=== PATIENT | male | born 1970 | race Caucasian/White ===

== ENCOUNTER 2019-05-17 19:32 | Inpatient (IN) | payer MEDICAID ==
[~2019-05-17] VITALS: Ht 165.1 cm; Wt 84.8 kg
[2019-05-17 19:35] VITALS: BP_SYST 138; BP_SYST 149; BP_DIAS 90
--- NOTE | 2019-05-17 20:01 | NUR ---
PT TAKEN TO XRAY
--- NOTE | 2019-05-17 20:05 | NUR ---
49 Y/O MALE PRESENTS WITH COUGH WITH SYNCOPAL EPISODE AT 1700. COUGH HAS BEEN PRESENT FOR 2 WEEKS, DAUGHTER REPORTS THAT WHEN PT BEGINS COUGHING HE PASSES OUT. SYNCOPAL EPISODE TODAY WAS UNWITNESSED. PT BELIEVES HE HAD LOC. PERRLA. AAOX4. RESP EVEN AND UNLABORED. EXP WHEEZES HEARD IN BILAT BASES. DENIES ANY RECENT ILLNESS/TRAVEL OUTSIDE COUNTRY. CAP REFILL <3. PT IS SMOKER, ABOUT 1 PACK EVERY TWO DAYS NO PMH NKA
--- NOTE | 2019-05-17 20:51 | NUR ---
PT AMBULATED TO ER BED 10
--- NOTE | 2019-05-17 21:23 | NUR ---
BLOOD DRAWN AND SENT TO LAB AT THIS TIME
[2019-05-17 21:36] LABS: BASOPHILS # (AUTO) 0.2 K/uL (0.00-0.22); BASOPHILS % (AUTO) 1.1 % (0.0-2.0); EOSINOPHILS # (AUTO) 0.1 K/uL (0-0.4); HEMATOCRIT 50.7 % (36-52); HEMOGLOBIN 16.9 g/dL (12.0-18.0); LYMPHOCYTES # (AUTO) 3.5 K/uL (2.0-11.5); LYMPHOCYTES % (AUTO) 24.9 % (20.5-51.1); MEAN CORPUSCULAR HEMOGLOBIN 30 pg (27-31); MEAN CORPUSCULAR HGB CONC 33 g/dL (33-37); MEAN CORPUSCULAR VOLUME 90.6 fL (80-94); MONOCYTES # (AUTO) 0.9 K/uL (0.8-1.0); MONOCYTES % (AUTO) 6.3 % (1.7-9.3); NEUTROPHILS # (AUTO) 9.5 K/uL (1.8-7.7); NEUTROPHILS % (AUTO) 66.7 % (42.2-75.2); PLATELET COUNT (AUTO) 217 K/uL (140-450); RED BLOOD CELL COUNT(AUTO) 5.59 MIL/uL (4.20-6.10); RED CELL DISTRIBUTION WIDTH 13.3 % (11.6-13.7); WHITE BLOOD COUNT (AUTO) 14.2 K/uL (4.8-10.8)
[2019-05-17 21:56] LABS: ALBUMIN 4.1 g/dL (3.4-5.0); ANION GAP 15.8 (8-16); CARBON DIOXIDE 24.9 mmol/L (21-32); CREATININE 0.8 mg/dL (0.6-1.3); POTASSIUM 4.7 mmol/L (3.5-5.1); TOTAL BILIRUBIN 0.4 mg/dL (0.0-1.0)
[2019-05-17 22:04] LABS: CREATINE KINASE MB 1.6 ng/mL (0-3.6)
--- NOTE | 2019-05-17 23:39 | NUR ---
PT TAKEN TO CT
--- NOTE | 2019-05-17 23:44 | NUR ---
PT RETURNED FROM CT
--- NOTE | 2019-05-17 23:44 | NUR ---
PT RETURN FROM CT
[2019-05-18] VITALS (9 sets, daily range): BP systolic 124–164; BP diastolic 63–97
[2019-05-18] MEDS ORDERED: ACETAMIN/CODEINE 120/12MG-5ML 5 ML UDC PO ONE
[2019-05-18] MEDS ORDERED: AMOXIL/CLAVULANATE 875/125 MG 1 TAB PO ONE (01:15)
[2019-05-18] MEDS ORDERED: ASPIRIN 325 MG TAB PO ONE (01:15)
--- NOTE | 2019-05-18 02:03 | NUR ---
PT ARRIVED AT UNIT VIA GURNEY, AMBULATED TO BED, TOLERATED WELL, RECEIVED REPORT FROM ER NURSE TAYLOR RN, PT STABLE, IV TO R AC 18G PATENT INTACT, PT ON ROOM AIR, NO SOB NOTED, PT STATED HAVING NO PAIN OR DISCOMFORT AT THIS MOMENT, ORIENT PT TO ROOM ,CALL LIGHT, MRSA SWAB TAKEN, INITIAL ASSESSMENT DONE, ALL SAFETY PRECAUTION MET, CALL LIGHT WITHIN REACH, WILL CONTINUE TO MONITOR.
--- NOTE | 2019-05-18 02:05 | NUR ---
PT ADMITTED TO [facility] RM 125A. TRANSFERRED VIA [facility] WITH [facility]; STABLE CONDITION. REPORT GIVEN TO JAY JAY YANEZ; TRANSFER OF CARE AT THIS TIME.
[2019-05-18] MEDS ORDERED: LEVOFLOXACIN 750 MG/D5W PREMIX 150 ML IV SCH (02:10)
[2019-05-18] MEDS ORDERED: MORPHINE SULFATE 2 MG/ML SYR IVP PRN (02:15)
[2019-05-18] MEDS ORDERED: ONDANSETRON 4 MG/2 ML VIAL IM/IVP PRN (02:15)
[2019-05-18] MEDS ORDERED: ACETAMINOPHEN 325 MG TAB PO PRN (02:15)
[2019-05-18] MEDS ORDERED: HYDROcodone/APAP 5/325 MG 1 TAB TAB PO PRN (02:15)
[2019-05-18] MEDS ORDERED: DOCUSATE SODIUM 100 MG GELCAP PO PRN (02:15)
--- NOTE | 2019-05-18 02:39 | NUR ---
ORTHOSTATIC BLOOD PRESSURE TAKEN, REPORTED TO DR. MARIE. DR STATED UNDERSTANDING.
[2019-05-18] MEDS: NACL 0.9% 1,000 ML IV SCH ×2 (02:57→10:01)
--- NOTE | 2019-05-18 02:57 | NUR ---
DUE MEDICATION ADMINISTERED, PT TOLERATED WELL, NO DISTRESS NOTED, CALL LIGHT WITHIN REACH, WILL CONTINUE TO MONITOR.
[2019-05-18] MEDS ORDERED: INFLUENZA VACCINE QUAD 0.5 ML SYR IMVAC PRN (03:10)
[2019-05-18 03:33] LABS: AMYLASE 50 U/L (25-115); CHOL/HDL RATIO 6.1 (1-4.5); FREE T4 (FREE THYROXINE) 0.93 ng/dL (0.76-1.46); HDL CHOLESTEROL 39 mg/dL (40-60); LACTATE DEHYDROGENASE 433 U/L (85-227); LDL (CALC) 70 mg/dL (60-100); LIPASE 201 U/L (73-393); PHOSPHORUS 3.5 mg/dL (2.5-4.9); THYROID STIMULATING HORMONE 1.28 uIU/mL (0.34-3.74); TRIGLYCERIDES 646 mg/dL (30-150)
[2019-05-18 03:41] LABS: MAGNESIUM 2.2 mg/dL (1.8-2.4)
[2019-05-18 03:56] LABS: PROTHROMBIN TIME 9.4 secs (10.8-13.4)
[2019-05-18 04:25] LABS: APPEARANCE,URINE CLEAR (CLEAR); BILIRUBIN,URINE NEGATIVE (NEGATIVE); BLOOD, URINE NEGATIVE (NEGATIVE); COLOR,URINE YELLOW (YELLOW); LEUKOCYTE ESTERASE ,URINE NEGATIVE (NEGATIVE); NITRITE, URINE NEGATIVE (NEGATIVE); PH,URINE 5.5 (5.0-9.0); UGLUCOSE NEGATIVE (NEGATIVE)
--- NOTE | 2019-05-18 05:20 | NUR ---
PT RESTING NO DISTRESS NOTED, CALL LIGHT WITHIN REACH, WILL CONTINUE TO MONITOR.
[2019-05-18 06:19] LABS: BARBITURATE, URINE NEG. ng/ml (NEG <=200); BENZODIAZEPINE, URINE NEG. ng/mL (NEG <=200); CANNABINOID, URINE NEG. ng/mL (NEG <=50); COCAINE, URINE NEG. ng/mL (NEG <=300); OPIATE, URINE POS. ng/mL (NEG <=2000); PHENCYCLIDINE SCREEN,URINE NEG. ng/mL (NEG <=25)
[2019-05-18 07:16] LABS: BASOPHILS # (AUTO) 0.1 K/uL (0.00-0.22); BASOPHILS % (AUTO) 0.5 % (0.0-2.0); EOSINOPHILS # (AUTO) 0.1 K/uL (0-0.4); HEMATOCRIT 46.1 % (36-52); HEMOGLOBIN 15.5 g/dL (12.0-18.0); LYMPHOCYTES # (AUTO) 2.9 K/uL (2.0-11.5); LYMPHOCYTES % (AUTO) 25.8 % (20.5-51.1); MEAN CORPUSCULAR HEMOGLOBIN 30 pg (27-31); MEAN CORPUSCULAR HGB CONC 34 g/dL (33-37); MEAN CORPUSCULAR VOLUME 89.6 fL (80-94); MONOCYTES % (AUTO) 8.3 % (1.7-9.3); NEUTROPHILS # (AUTO) 7.3 K/uL (1.8-7.7); NEUTROPHILS % (AUTO) 64.4 % (42.2-75.2); PLATELET COUNT (AUTO) 193 K/uL (140-450); RED BLOOD CELL COUNT(AUTO) 5.15 MIL/uL (4.20-6.10); WHITE BLOOD COUNT (AUTO) 11.4 K/uL (4.8-10.8)
[2019-05-18 07:21] LABS: ANION GAP 12.9 (8-16); CREATININE 0.6 mg/dL (0.6-1.3); POTASSIUM 3.9 mmol/L (3.5-5.1)
--- NOTE | 2019-05-18 07:21 | NUR ---
ENDORSED TO DAY SHIFT NURSE CONCHIS YANEZ, PT STABLE, NO DISTRESS NOTED, CALL LIGHT WITHIN REACH.
--- NOTE | 2019-05-18 07:26 | NUR ---
RECEIVED BEDSIDE REPORT FROM NIGHTSHIFT NURSE. PT RESTING IN BED. ABLE TO MAKE NEEDS KNOWN. RESPIRATIONS EVEN AND UNLABORED WITH NO SOB OR RESPIRATORY DISTRESS. SKIN WARM AND DRY TO TOUCH. IV SITE IN RIGHT AC 18G IS CLEAN, DRY, AND INTACT. SAFETY MEASURES IN PLACE. WILL CONTINUE TO MONITOR.
--- NOTE | 2019-05-18 07:59 | NUR ---
PATIENT HAS BEEN SCREENED AND CATEGORIZED MODERATE NUTRITION RISK. PATIENT WILL BE SEEN WITHIN 3-5 DAYS OF ADMISSION. 05/21/19 - 05/23/19 MATT HAMM MBA,RD
[2019-05-18] MEDS: LACTOBACILLUS RHAMNOSUS GG 1 EACH CAP PO SCH (08:44)
[2019-05-18] MEDS: FLUTICASONE NASAL 50 MCG/ACTUATION 16 GM BTL NS SCH (08:44)
--- NOTE | 2019-05-18 08:44 | NUR ---
ADMINISTERED SCHED MED PRESCRIBED PER MD ORDER. PT TOLERATED WELL. MEDICATION EDUCATION PERFORMED. PT VERBALIZED UNDERSTANDING. SAFETY MEASURES IN PLACE. WILL CONTINUE TO MONITOR.
[2019-05-18] MEDS: LISINOPRIL 10 MG TAB PO SCH (08:45)
[2019-05-18] MEDS: ASPIRIN 81 MG TAB.CHEW PO SCH (08:45)
[2019-05-18] MEDS ORDERED: FENOFIBRATE 48 MG TAB PO SCH (09:00)
[2019-05-18] MEDS ORDERED: MECLIZINE 25 MG TAB PO PRN (10:05)
--- NOTE | 2019-05-18 10:21 | NUR ---
HOURLY ROUNDING. PT WATCHING TV AND RESTING IN BED. ABLE TO MAKE NEEDS KNOWN. RESPIRATIONS EVEN AND UNLABORED WITH NO SOB OR RESPIRATORY DISTRESS. SKIN WARM AND DRY TO TOUCH. SAFETY MEASURES IN PLACE. WILL CONTINUE TO MONITOR.
--- NOTE | 2019-05-18 12:30 | NUR ---
HOURLY ROUNDING. PT RESTING IN BED. ABLE TO MAKE NEEDS KNOWN. RESPIRATIONS EVEN AND UNLABORED WITH NO SOB OR RESPIRATORY DISTRESS. SKIN WARM AND DRY TO TOUCH. SAFETY MEASURES IN PLACE. WILL CONTINUE TO MONITOR.
[2019-05-18] MEDS ORDERED: guaiFENesin DM 200/20 MG-10 ML 10 ML UDC PO PRN (15:10)
--- NOTE | 2019-05-18 15:22 | NUR ---
PT SLEEPING IN BED. RESPONSIVE TO VERBAL AND TACTILE STIMULI. ABLE TO MAKE NEEDS KNOWN. RESPIRATIONS EVEN AND UNLABORED WITH NO SOB OR RESPIRATORY DISTRESS. SKIN WARM AND DRY TO TOUCH. SAFETY MEASURES IN PLACE. WILL CONTINUE TO MONITOR.
--- NOTE | 2019-05-18 15:30 | NUR ---
PT CALLED AND COMPLAINED OF COUGHING. PRN COUGH MEDICATION ADMINISTERED PRESCRIBED PER MD ORDER. MEDICATION EDUCATION PERFORMED. PT VERBALIZED UNDERSTANDING. SAFETY MEASURES IN PLACE. WILL CONTINUE TO MONITOR
--- NOTE | 2019-05-18 17:33 | NUR ---
PT RESTING SITTING ON CHAIR WITH FAMILY AT BEDSIDE. ABLE TO MAKE NEEDS KNOWN. RESPIRATIONS EVEN AND UNLABORED WITH NO SOB OR RESPIRATORY DISTRESS. SKIN WARM AND DRY TO TOUCH. SAFETY MEASURES IN PLACE. WILL CONTINUE TO MONITOR.
--- NOTE | 2019-05-18 19:05 | NUR ---
ENDORSED AT BEDSIDE TO NIGHTSHIFT NURSE. PT RESTING IN BED. ABLE TO MAKE NEEDS KNOWN. RESPIRATIONS EVEN AND UNLABORED WITH NO SOB OR RESPIRATORY DISTRESS. SKIN WARM AND DRY TO TOUCH. SAFETY MEASURES IN PLACE. PT IS STABLE.
--- NOTE | 2019-05-18 19:06 | NUR ---
RECEIVED BEDSIDE REPORT FROM DAY SHIFT NURSE CONCHIS RN, PT STABLE, NO DISTRESS NOTED, IV TO R AC 18G PATENT INTACT, INFUSING WELL, PT ON ROOM AIR, NO SOB NOTED, NO C/O PAIN AT THIS MOMENT, FAMILY AT BEDSIDE, INITIAL ASSESSMENT DONE, ALL SAFETY PRECAUTION MET, CALL LIGHT WITHIN REACH, WILL CONTINUE TO MONITOR.
[2019-05-18] MEDS: AMOXIL/CLAVULANATE 875/125 MG 1 TAB PO SCH (20:40)
[2019-05-18] MEDS: ATORVASTATIN 20 MG TAB PO SCH (20:40)
--- NOTE | 2019-05-18 20:44 | NUR ---
DUE MEDICATION ADMINISTERED, PT TOLERATED WELL, NO DISTRESS NOTED, CALL LIGHT WITHIN REACH, WILL CONTINUE TO MONITOR.
[2019-05-18] MEDS ORDERED: ATORVASTATIN 20 MG TAB PO SCH (21:00)
[2019-05-18] MEDS: BENZONATATE 100 MG CAPLF PO PRN (21:47)
--- NOTE | 2019-05-18 21:47 | NUR ---
PT COUGHING, MEDICATION PER DR ORDER GIVEN, PT TOLERATED WELL, NO DISTRESS NOTED, CALL LIGHT WITHIN REACH, WILL CONTINUE TO MONITOR.
[2019-05-19] VITALS: BP 131/79
--- NOTE | 2019-05-19 00:20 | NUR ---
PT SLEEPING, NO DISTRESS NOTED, CALL LIGHT WITHIN REACH, WILL CONTINUE TO MONITOR.
--- NOTE | 2019-05-19 03:10 | NUR ---
PT SLEEPING, AT BEDSIDE, NO DISTRESS NOTED, CALL LIGHT WITHIN REACH, WILL CONTINUE TO MONITOR.
[2019-05-19 04:00] VITALS: BP 127/83
[2019-05-19] MEDS: NACL 0.9% 1,000 ML IV SCH (04:00)
--- NOTE | 2019-05-19 05:48 | NUR ---
PT NOTED TO HAD 3 OCCURRENCE OF SYNCOPE WHILE COUGHING, REPORTED BY PT WHO STAYED NEXT TO PT.
[2019-05-19 06:26] LABS: BASOPHILS % (AUTO) 0.4 % (0.0-2.0); EOSINOPHILS # (AUTO) 0.1 K/uL (0-0.4); EOSINOPHILS % (AUTO) 0.9 % (0.0-4.0); HEMATOCRIT 46.9 % (36-52); HEMOGLOBIN 15.8 g/dL (12.0-18.0); LYMPHOCYTES # (AUTO) 2.5 K/uL (2.0-11.5); LYMPHOCYTES % (AUTO) 24.2 % (20.5-51.1); MEAN CORPUSCULAR HEMOGLOBIN 31 pg (27-31); MEAN CORPUSCULAR HGB CONC 34 g/dL (33-37); MEAN CORPUSCULAR VOLUME 90.4 fL (80-94); MONOCYTES # (AUTO) 0.9 K/uL (0.8-1.0); NEUTROPHILS # (AUTO) 6.8 K/uL (1.8-7.7); NEUTROPHILS % (AUTO) 65.5 % (42.2-75.2); PLATELET COUNT (AUTO) 207 K/uL (140-450); RED BLOOD CELL COUNT(AUTO) 5.19 MIL/uL (4.20-6.10); RED CELL DISTRIBUTION WIDTH 13.3 % (11.6-13.7); WHITE BLOOD COUNT (AUTO) 10.3 K/uL (4.8-10.8)
[2019-05-19 06:51] LABS: ANION GAP 11.4 (8-16); CARBON DIOXIDE 29.1 mmol/L (21-32); CREATININE 0.9 mg/dL (0.6-1.3); POTASSIUM 4.5 mmol/L (3.5-5.1)
[2019-05-19 07:00] LABS: MAGNESIUM 2.2 mg/dL (1.8-2.4); PHOSPHORUS 3.2 mg/dL (2.5-4.9)
--- NOTE | 2019-05-19 07:09 | NUR ---
ENDORSED PT TO DAY SHIFT NURSE CONCHIS RN, PT STABLE, NO DISTRESS NOTED, CALL LIGHT WITHIN REACH,
--- NOTE | 2019-05-19 07:15 | NUR ---
RECEIVED BEDSIDE REPORT FROM NIGHTSHIFT NURSE. PT RESTING IN BED UPON ARRIVAL. ABLE TO MAKE NEEDS KNOWN. RESPIRATIONS EVEN AND UNLABORED WITH NO SOB OR RESPIRATORY DISTRESS, SKIN WARM AND DRY TO TOUCH, IV SITE IN RIGHT AC 18G IS CLEAN, DRY, AND INTACT. SAFETY MEASURES IN PLACE. WILL CONTINUE TO MONITOR.
[2019-05-19] MEDS ORDERED: guaiFENesin/CODEINE 100/10MG 5 ML UDC PO PRN (07:45)
[2019-05-19 08:00] VITALS: BP 122/75
[2019-05-19] MEDS: ASPIRIN 81 MG TAB.CHEW PO SCH (08:45)
[2019-05-19] MEDS: FLUTICASONE NASAL 50 MCG/ACTUATION 16 GM BTL NS SCH (08:45)
[2019-05-19] MEDS: AMOXIL/CLAVULANATE 875/125 MG 1 TAB PO SCH (08:46)
[2019-05-19] MEDS: LISINOPRIL 10 MG TAB PO SCH (08:46)
[2019-05-19] MEDS: FENOFIBRATE 48 MG TAB PO SCH (08:46)
[2019-05-19] MEDS: LACTOBACILLUS RHAMNOSUS GG 1 EACH CAP PO SCH ×2 (08:46→10:00)
--- NOTE | 2019-05-19 08:51 | NUR ---
ADMINISTERED SCHED MED PRESCRIBED PER MD ORDER. PT TOLERATED WELL. MEDICATION EDUCATION PERFORMED. PT VERBALIZED UNDERSTANDING. SAFETY MEASURES IN PLACE. WILL CONTINUE TO MONITOR.
[2019-05-19] MEDS ORDERED: ALBUTEROL SULFATE/IPRATROPIU 3 ML SOL IH PRN (09:05)
[2019-05-19] MEDS ORDERED: PROMETH/CODEINE 6.25-10MG/5ML 5 ML UDC PO PRN (09:10)
--- NOTE | 2019-05-19 09:45 | NUR ---
PT RESTING IN BED WITH FAMILY AT BEDSIDE. ABLE TO MAKE NEEDS KNOWN. RESPIRATIONS EVEN AND UNLABORED WITH NO SOB OR RESPIRATORY DISTRESS, SKIN WARM AND DRY TO TOUCH. SAFETY MEASURES IN PLACE. WILL CONTINUE TO MONITOR.
[2019-05-19] MEDS ORDERED: methylPREDNISolone SS 125 MG/2 ML VIAL IVP SCH (10:00)
[2019-05-19] MEDS: LEVOFLOXACIN 750 MG/D5W PREMIX 150 ML IV SCH (10:37)
--- NOTE | 2019-05-19 10:37 | NUR ---
ADMINISTERED SCHED MED PRESCRIBED PER MD ORDER. PT TOLERATED WELL. MEDICATION EDUCATION PERFORMED. PT VERBALIZED UNDERSTANDING. SAFETY MEASURES IN PLACE. WILL CONTINUE TO MONITOR.
--- NOTE | 2019-05-19 11:59 | NUR ---
DISCHARGE PLANNIN49 Y/O MALE PATIENT FROM HOME, WHO CAME IN DUE TO COUGH X 2 WEEKS WITH SYNCOPAL EPISODES. PAST MEDICAL AND SURGICAL HISTORY INCLUDE TOBACCO USE DISORDER, HERNIA REPAIR, RIGHT SCALP SURGERY, NASAL SURGERY AND RIGHT LOWER RIB FRACTURE. INITIAL DIAGNOSIS OF SYNCOPE. CURRENT LABS INCLUDE WBC 10.3, H/H 15.8/46.9, NA/K 140/4.5, BUN/CREA 16/0.9. UDS SHOWED POSITIVE FOR OPIATES. ON SOLU-MEDROL, LEVOFLOXACIN. NEURO AND CARDIO CONSULTS IN PLACE. DC PLAN TO GO BACK HOME ONCE STABLE.
[2019-05-19 12:00] VITALS: BP 142/70
--- NOTE | 2019-05-19 12:10 | NUR ---
PT TAKEN TO GET CT SCAN DONE
--- NOTE | 2019-05-19 12:30 | NUR ---
PT RETURNED BACK FROM CT SCAN. SAFETY MEASURES IN PLACE. WILL CONTINUE TO MONITOR.
[2019-05-19] MEDS: BENZONATATE 100 MG CAPLF PO PRN (13:00)
--- NOTE | 2019-05-19 13:04 | NUR ---
PT CALLED AND COMPLAINED OF COUGH. PRN COUGH MEDICATION ADMINISTERED PRESCRIBED PER MD ORDER, PT TOLERATED WELL. MEDICATION EDUCATION PERFORMED. PT VERBALIZED UNDERSTANDING. SAFETY MEASURES IN PLACE. WILL CONTINUE TO MONITOR.
[2019-05-19] MEDS: ALBUTEROL SULFATE/IPRATROPIU 3 ML SOL IH SCH ×2 (14:27→19:36)
[2019-05-19 16:00] VITALS: BP 126/59
--- NOTE | 2019-05-19 16:17 | NUR ---
HOURLY ROUNDING. PT RESTING IN BED UPON ARRIVAL. ABLE TO MAKE NEEDS KNOWN. RESPIRATIONS EVEN AND UNLABORED WITH NO SOB OR RESPIRATORY DISTRESS, SKIN WARM AND DRY TO TOUCH. SAFETY MEASURES IN PLACE. WILL CONTINUE TO MONITOR.
[2019-05-19] MEDS: methylPREDNISolone SS 125 MG/2 ML VIAL IVP SCH (18:12)
--- NOTE | 2019-05-19 18:15 | NUR ---
ADMINISTERED SCHED MED PRESCRIBED PER MD ORDER. PT TOLERATED WELL. MEDICATION EDUCATION PERFORMED. PT VERBALIZED UNDERSTANDING. SAFETY MEASURES IN PLACE. WILL CONTINUE TO MONITOR.
--- NOTE | 2019-05-19 19:15 | NUR ---
ENDORSED TO NIGHTSHIFT NURSE. PT IS STABLE
--- NOTE | 2019-05-19 19:15 | NUR ---
RECEIVED REPORT AT BEDSIDE FORM CONCHIS YANEZ DAYSHIFT NURSE AT BEDSIDE FOR CONTINUITY OF CARE, PT IN STABLE CONDITION.
--- NOTE | 2019-05-19 19:41 | NUR ---
RECEIVED PT ON ROOM AIR WITH AN SP02 OF 95% AND A CLEAR BREATH SOUNDS ON UPPER LOBES. NO APPARENT RESPIRATORY DISTRESS NOTED AT THIS TIME. HHN TX GIVEN ORDERED WITH NO ADVERSE REACTION. FAMILY AT BEDSIDE. WILL CONTINUE TO MONITOR PT.
[2019-05-19 20:00] VITALS: BP 122/75
--- NOTE | 2019-05-19 20:00 | NUR ---
PT SITTING UP IN BED AOX4, PAKISTANI AND [place]ET[place]ESE SPEAKING. PT HAS IV SITE RAC 18 GUAGE RUNNING N/S AT 60MLS/HR. PT THADDEUS ANY PAIN OR DISCOMFORT. HE DID HAVE X1 EPISODE OF COUGHING HARD AND PRODUCING SMALL WHITE SPUTUM. V/S FOLLOWS: T 97.3 P 68 R 20 B/P 122/75 02 95% ON ROOM AIR. FAMILY AT BEDSIDE. ALL FALLS PROTOCOL IN PLACE. PT REQUESTING PRN FOR COUGHING AND AN AID TO HELP HIM SLEEP.
[2019-05-19] MEDS: ATORVASTATIN 20 MG TAB PO SCH (20:31)
[2019-05-19] MEDS ORDERED: ZOLPIDEM 5 MG TAB PO PRN (20:45)
--- NOTE | 2019-05-19 21:30 | NUR ---
SPOKE WITH MD MIRAMONTES WHO AGREED TO ODER PO/PRN AMBIEN FOR INSOMNIA. PT WAS GIVEN ORDERED LIPITOR AND HEPARIN WELL PRN AMBIEN AND PO ROBITUSSIN FOR COUGH. PT BREATHING EVEN AND UNLABORED WITH ROOM AIR, ALL FALLS PROTOCOL IN PLACE,. NORMAL SALINE BAG REPLACED AND RUNNING AT 60MLS/HR ORDERED.
[2019-05-20] VITALS: BP 133/77
--- NOTE | 2019-05-20 | NUR ---
PT IN BED AWAKE, NO S/S OF PAIN OR DISTRESS NOTED. WITH N/S RUNNING AT 60MLS/HR ORDERED. V/S FOLLOWS: T 97.5 P 84 R 20 B/P 133/77 02 94% ON ROOM AIR. ALL FALLS PROTOCOL IN PLACE.
[2019-05-20] MEDS: NACL 0.9% 1,000 ML IV SCH ×2 (01:48→11:48)
--- NOTE | 2019-05-20 02:16 | NUR ---
PT GIVEN REQUESTED PRN NEB TREATMENT WELL ORDERED SOLUMEDROL.
[2019-05-20] MEDS: methylPREDNISolone SS 125 MG/2 ML VIAL IVP SCH ×2 (02:26→10:00)
[2019-05-20 04:00] VITALS: BP 95/67
--- NOTE | 2019-05-20 04:30 | NUR ---
PT IN BED DENIES PAIN V/S FOLLOWS: T 98.5 P 61 R 20 B/P95/67 02 100% ON ROOM AIR.PT THADDEUS ANY PAIN OR DISCOMFORT, ALL FALLS PRECAUTIONS IN PLACE. N/S RUNNING AT 60MLS/HR ORDERED.
[2019-05-20 06:06] LABS: CREATININE 0.8 mg/dL (0.6-1.3)
[2019-05-20] MEDS: ALBUTEROL SULFATE/IPRATROPIU 3 ML SOL IH SCH ×2 (07:55→13:49)
[2019-05-20 08:00] VITALS: BP 132/70
[2019-05-20] MEDS: FENOFIBRATE 48 MG TAB PO SCH (09:00)
[2019-05-20] MEDS: ASPIRIN 81 MG TAB.CHEW PO SCH (09:00)
[2019-05-20] MEDS: FLUTICASONE NASAL 50 MCG/ACTUATION 16 GM BTL NS SCH (09:00)
[2019-05-20] MEDS: LACTOBACILLUS RHAMNOSUS GG 1 EACH CAP PO SCH (09:00)
[2019-05-20] MEDS: LISINOPRIL 10 MG TAB PO SCH (09:00)
[2019-05-20 10:53] LABS: MAGNESIUM 2.1 mg/dL (1.8-2.4); PHOSPHORUS 3.4 mg/dL (2.5-4.9)
[2019-05-20 10:54] LABS: BASOPHILS % (AUTO) 0.2 % (0.0-2.0); HEMATOCRIT 43.3 % (36-52); HEMOGLOBIN 14.5 g/dL (12.0-18.0); LYMPHOCYTES % (AUTO) 15.2 % (20.5-51.1); MEAN CORPUSCULAR HEMOGLOBIN 30 pg (27-31); MEAN CORPUSCULAR HGB CONC 34 g/dL (33-37); MEAN CORPUSCULAR VOLUME 89.9 fL (80-94); MONOCYTES # (AUTO) 0.4 K/uL (0.8-1.0); MONOCYTES % (AUTO) 3.1 % (1.7-9.3); NEUTROPHILS # (AUTO) 10.9 K/uL (1.8-7.7); NEUTROPHILS % (AUTO) 81.5 % (42.2-75.2); PLATELET COUNT (AUTO) 207 K/uL (140-450); RED BLOOD CELL COUNT(AUTO) 4.82 MIL/uL (4.20-6.10); RED CELL DISTRIBUTION WIDTH 13.1 % (11.6-13.7); WHITE BLOOD COUNT (AUTO) 13.4 K/uL (4.8-10.8)
--- NOTE | 2019-05-20 10:55 | NUR ---
[employer] pet [employer] companyTECH WAS DOWN SINCE BEGINNING OF SHIFT, IT IS UP AND RUNNING AT THIS TIME. OPENING NOTES, 0800 VS, AND AM PAINTER HELPER SIGN ARE DOCUMENTED ON PAPER IN PT'S CHART.
[2019-05-20] MEDS: LEVOFLOXACIN 750 MG/D5W PREMIX 150 ML IV SCH (11:21)
[2019-05-20] MEDS ORDERED: TRI48 PO (11:47)
[2019-05-20] MEDS ORDERED: ASPI81CT95 PO (11:47)
[2019-05-20] MEDS ORDERED: PRED10TA5 PO ×2 (11:47→11:56)
[2019-05-20] MEDS ORDERED: ATOR20TA40 PO (11:47)
[2019-05-20] MEDS ORDERED: BENZ100C6 PO (11:47)
[2019-05-20] MEDS ORDERED: FLONAS NS (11:47)
[2019-05-20] MEDS ORDERED: NICO1PAT16 TD (11:49)
[2019-05-20 12:00] VITALS: BP 121/78
--- NOTE | 2019-05-20 15:00 | NUR ---
RECEIVE REPORT FROM NURSE PEARSON, PT READY TO BE DISCHARGED, PT NEEDS FLU VACCINE AND THEN CAN BE DISCHARGED. NURSE ALREADY PRINTED DISCHARGE PAPERWORK. PT IS STABLE, CALL LIGHT WITHIN REACH.
--- NOTE | 2019-05-20 15:10 | NUR ---
PT ENDORSED TO BEAU CROOK, FOR CONTINUITY OF CARE.
--- NOTE | 2019-05-20 15:37 | NUR ---
ADMINISTERED FLU VACCINE TO PT, EDUCATION GIVEN, PT VERBALIZED UNDERSTANDING, PT IS STABLE, NO SIGNS OF DISTRESS NOTED, AT BEDSIDE, CALL LIGHT WITHIN REACH.
--- NOTE | 2019-05-20 16:00 | NUR ---
PT DISCHARGED HOME, IV SITE REMOVED AND IT WAS INTACT, DISCHARGE INSTRUCTIONS GIVEN, PT VERBALIZED UNDERSTANDING, PT REFUSED PNA SHOT, PT IS STABLE, WHEELED PT OUT TO THE CAR, PT AMBULATED INTO THE CAR, PT WALKED WITH STEADY GAIT, PT STABLE.
[2019-05-20] MEDS ORDERED: methylPREDNISolone SS 40 MG/ML VIAL IVP SCH (21:00)
== END 2019-05-20 16:57 | disposition home or self-care (01) | DRG 204 ==
LOC: MED 19:32 → MMU 05-18 01:26 → MTU 05-19 13:11
PROVIDERS: ADMIT General Practice; ATTEND General Practice
DX: R55 Syncope and collapse (principal); G90.8 Other disorders of autonomic nervous system; K76.89 Other specified diseases of liver; E66.9 Obesity, unspecified; F17.210 Nicotine dependence, cigarettes, uncomplicated; I10 Essential (primary) hypertension; E78.5 Hyperlipidemia, unspecified; J01.90 Acute sinusitis, unspecified; F11.90 Opioid use, unspecified, uncomplicated; E86.0 Dehydration; Z68.31 Body mass index [BMI] 31.0-31.9, adult; Z23 Encounter for immunization
CPT/HCPCS: 36415; 36600; 70450; 70491; 71045; 71046; 71275; 80048; 80053; 80305; 81003; 82140; 82150; 82550; 82553; 82803; 83036; 83605; 83615; 83690; 83735; 83880; 84100; 84439; 84443; 84484; 84550; 85025; 85379; 85610; 85730; 87081; 87804; 93005; 93880; 94640; 99285; G0482; J1644; J1956; J2930; J7030; J7620; Q0092; Q9967

== ENCOUNTER 2019-06-04 18:30 | Emergency (ER) | payer MEDICAID ==
[~2019-06-04] VITALS: Ht 165.1 cm; Wt 85.3 kg
[~2019-06-04 18:30] MED LIST: ASPI81CT95 PO; ATOR20TA40 PO; BENZ100C6 PO; FLONAS NS; NICO1PAT16 TD; PRED10TA5 PO; TRI48 PO
[2019-06-04 18:34] VITALS: BP 167/89
--- NOTE | 2019-06-04 18:40 | NUR ---
PT TO BED 7 WITH STEADY GAIT
--- NOTE | 2019-06-04 19:08 | NUR ---
RECIEVED REPORT FROM BEAU LIGHT. [facility] AT THIS TIME.
--- NOTE | 2019-06-04 19:13 | NUR ---
Dr. Lyons examining patient.
== END 2019-06-04 19:34 | disposition home or self-care (01) ==
LOC: MED 18:30
DX: S05.12XA Contusion of eyeball and orbital tissues, left eye, initial encounter (principal); R05 Cough; I10 Essential (primary) hypertension; Z79.899 Other long term (current) drug therapy; X58.XXXA Exposure to other specified factors, initial encounter; Y93.89 Activity, other specified; Y92.89 Other specified places as the place of occurrence of the external cause; Y99.8 Other external cause status
CPT/HCPCS: 71045; 99283; Q0092